=== PATIENT | female | born 1970 | race Asian ===

== ENCOUNTER 2021-06-16 07:54 | Emergency (ER) | payer OTHER ==
[~2021-06-16] VITALS: Ht 157.5 cm; Wt 98.4 kg
[2021-06-16 09:00] VITALS: BP 136/62; TEMP 97.8
== END 2021-06-16 09:00 | disposition home or self-care (01) ==
LOC: ED 07:54
DX: M62.830 Muscle spasm of back (principal); V48.5XXA Car driver injured in noncollision transport accident in traffic accident, initial encounter; Y92.89 Other specified places as the place of occurrence of the external cause
CPT/HCPCS: 96372; 99283; J2360

== ENCOUNTER 2021-07-17 13:32 | Outpatient (CLI) | payer OTHER | END 2021-07-17 19:02 | disposition home or self-care (01) | LOC: MRI 13:32 | PROVIDERS: ATTEND Nurse Practitioner Family | DX: M47.896 Other spondylosis, lumbar region (principal) ==

== ENCOUNTER 2022-01-11 08:00 | Emergency (ER) | payer OTHER ==
[~2022-01-11] VITALS: Ht 157.5 cm; Wt 105.2 kg
[2022-01-11 08:14] VITALS: TEMP 98.8
[2022-01-11 08:41] LABS: PLATELET COUNT 252 K/uL (152-353)
[2022-01-11 09:10] VITALS: BP 128/70
== END 2022-01-11 09:15 | disposition home or self-care (01) ==
LOC: ED 08:00
PROVIDERS: Family Medicine
DX: M94.0 Chondrocostal junction syndrome [Tietze] (principal); J20.8 Acute bronchitis due to other specified organisms; J32.9 Chronic sinusitis, unspecified; B97.89 Other viral agents as the cause of diseases classified elsewhere
CPT/HCPCS: 85027; 87502; 99283